=== PATIENT | male | born 1960 | race Caucasian/White ===

== ENCOUNTER 2017-04-16 10:07 | Emergency (ER) | payer BC ==
--- NOTE | 2017-04-16 10:18 | CPEKG ---
Heart Rate: 51 RR Interval: 1176 P-R Interval: 144 QRSD Interval: 92 QT Interval: 436 QTC Interval: 402 P [place]: 13 QRS [place]: -13 T Wave [place]: 27 EKG Severity - NORMAL ECG - EKG Impression: SINUS RHYTHM Electronically Signed By: Delta Arroyo 16-Apr-2017 10:55:31
--- NOTE | 2017-04-16 10:44 | EDPHY ---
H & P Stated Complaint: chest tightness since 9AM Time Seen by Provider: 04/16/17 10:17 HPI/ROS: CHIEF COMPLAINT: Chest pain HISTORY OF PRESENT ILLNESS: The patient presents to the ED after he developed chest pain o'clock this morning. 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 Patient was concerned about the persistence of his symptoms which he describes as a dull left substernal ache. There is no radiation of the pain. 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 The patient was sent to the ED to have a troponin test. Patient is currently chest pain-free. The patient does report a history of a small ASD but no history of coronary artery disease. The patient exercises frequently without chest pain or shortness of breath. The patient does have a history of gastroesophageal reflux disease. REVIEW OF SYSTEMS: A comprehensive 10 point review of systems is otherwise negative aside from elements mentioned in the history of present illness. Source: Patient Exam Limitations: No limitations - Personal History Current Tetanus/Diphtheria Vaccine: Unsure Current Tetanus Diphtheria and Acellular Pertussis (TDAP): Unsure - Medical/Surgical History Hx Asthma: Yes Hx Chronic Respiratory Disease: No Hx Diabetes: No Hx Cardiac Disease: Yes Hx Renal Disease: No Hx Cirrhosis: No Hx Alcoholism: No Hx HIV/AIDS: No Hx Splenectomy or Spleen Trauma: No Other PMH: Arterial-septal defect, exersise induced asthma, cyst removed from neck - Social History Smoking Status: Former smoker - Physical Exam Exam: General Appearance: Alert, no distress Eyes: Pupils equal and round no pallor or injection ENT, Mouth: Mucous membranes moist Respiratory: There are no retractions, lungs are clear to auscultation Cardiovascular: Regular rate and rhythm Gastrointestinal: Abdomen is soft and nontender, no masses, bowel sounds normal Neurological: A&O, normal motor function, normal sensory exam, normal cranial nerves Skin: Warm and dry, no rashes Musculoskeletal: Neck is supple nontender Extremities: symmetrical, full range of motion Psychiatric: Patient is oriented X 3, there is no agitation Constitutional: Initial Vital Signs Temperature (C) 36.8 C 04/16/17 10:08 Heart Rate 53 L 04/16/17 10:08 Respiratory Rate 14 04/16/17 10:08 Blood Pressure 121/77 H 04/16/17 10:08 O2 Sat (%) 96 04/16/17 10:08 O2 Delivery Mode Room Air Allergies/Adverse Reactions: No Known Allergies Allergy (Verified 04/07/15 11:03) Home Medications: Medication Instructions Recorded Aspirin 81mg (*) 04/16/17 Protonix 04/16/17 Medical Decision Making - Diagnostics EKG Interpretation: EKG: Complete interpretation has been separately recorded in the [facility] archive. Summary impression: Sinus rhythm, no acute ischemic changes noted ED Course/Re-evaluation: The patient presents to the ED after an acute episode of nonexertional mild chest pain. The patient has no risk factors for coronary artery disease. He has no history of exertional chest pain or shortness of breath despite a reported history of fairly significant exercise. The patient had troponin x2 in the ED both of which were normal. His EKG is nonischemic. The patient remained asymptomatic throughout his stay in the ED. At this point time I clinical suspicion for acute coronary syndrome is quite low. The patient is comfortable being discharged home and returning to the emergency department for any worsening symptoms, exertional symptoms or other concerns. Differential Diagnosis: Differential diagnosis considered includes acute coronary syndrome, gastroesophageal reflux, costochondritis, zoster - Data Points Laboratory Results: 04/16/17 04/16/17 11:30 10:22 Troponin I < 0.012 ng/mL ng/mL < 0.012 ng/mL ng/mL (0-0.034) (0-0.034) Departure - Departure Disposition: Home, Routine, Self-Care Clinical Impression: Chest pain Condition: Good Instructions: Chest Pain (ED) Additional Instructions: 1. Based upon the testing done in the Emergency Department today we see no evidence of a heart attack. 2. We are unable to fully exclude coronary artery disease based upon the testing available in the Emergency Department. 3. For this reason, we would like you to be seen by cardiology for consideration of additional testing within the next 3 days. 4. Please contact the advertising manager you have been referred to schedule this appointment as soon as possible. Their offices are typically open from 8:30am- 5pm M-F. 5. Please return to the Emergency Department immediately for any recurrent chest pain, difficulty breathing or other concerns. Referrals: Beni Ardon [Primary Care Provider] - As per Instructions Kwame Aguilar MD [Medical Doctor] - As per Instructions
[2017-04-16 11:12] VITALS: RESP 18
[2017-04-16 12:46] VITALS: BP 110/71; PULSE 52; TEMP 97.9; O2SAT 97
== END 2017-04-16 12:45 | disposition home or self-care (01) ==
DX: R07.9 Chest pain, unspecified (principal); J45.909 Unspecified asthma, uncomplicated; Z79.82 Long term (current) use of aspirin; Z87.891 Personal history of nicotine dependence

== ENCOUNTER → 2017-09-02 | Outpatient (CLI) | payer BC | LOC: FIMAGING 10:36 | PROVIDERS: ATTEND Family Medicine | DX: S86.912A Strain of unspecified muscle(s) and tendon(s) at lower leg level, left leg, initial encounter (principal); X58.XXXA Exposure to other specified factors, initial encounter; M51.87 Other intervertebral disc disorders, lumbosacral region ==